=== PATIENT | female | born 1985 | race African-American/Black ===

== ENCOUNTER 2017-07-31 16:40 | Emergency (ER) | payer OTHER ==
[~2017-07-31] VITALS: Ht 188 cm; Wt 158.8 kg
[2017-07-31] MEDS ORDERED: ONDANSETRON HCL INJ 2 MG/ML VIAL IV STA (16:51)
[2017-07-31] MEDS ORDERED: MORPHINE SULFATE 2 MG/ML SYR IV STA (16:51)
[2017-07-31] MEDS ORDERED: SODIUM CHLORIDE 0.9% 1000ML 1,000 ML IV SCH (17:00)
[2017-07-31] MEDS ORDERED: CEFTRIAXONE SOD 1 GM VIAL IV ONE (18:15)
== END 2017-07-31 20:36 | disposition home or self-care (01) ==
LOC: FSED 16:40
DX: R10.33 Periumbilical pain (principal); R11.0 Nausea; Z32.01 Encounter for pregnancy test, result positive
CPT/HCPCS: 86900; 99283; J0696

== ENCOUNTER 2017-09-05 19:52 | Emergency (ER) | payer OTHER ==
[~2017-09-05] VITALS: Ht 188 cm; Wt 160.6 kg
--- OUTSIDE RECORDS SUMMARY | 2017-09-05 19:54 | XMS REPORT | Continuity of Care Document ---
Author Author [facility] Organization [facility] Address [address] [place] [address] Phone Unavailable Care Team Providers Care Metal Weather Stripper Name Role Phone NO, PCP PCP Unavailable Insurance Providers Guarantor Annamarie Hansen Address [address] [facility] [address] [place] [address] Email NONE Payer Power Union Policy Number [id number] Subscriber's Name YosvanyAnnamarie Weiss Relationship 18 Self / Same As Patient Group Number [id number] Group Name UNEMPLOYED Effective Date 17 Advance Directives Directive Response Recorded Date/Time Does the patient have an advance directive? No 07/31/17 5:57pm If yes, is advance directive on file with [facility]? No 07/31/17 5:57pm If not on file with [facility] will patient provide a copy? No 07/31/17 5:57pm Do you have a Directive to Physician? No 07/31/17 5:57pm Do you have a Medical Power of Performance Improvement Director? No 07/31/17 5:57pm Do you have an out of hospital Do Not Resuscitate Order? No 07/31/17 5:57pm Do you have any special needs we should be aware of? No 07/31/17 5:57pm Do you have a support person here with you today? Yes 07/31/17 5:57pm Did patient receive Notice of Privacy Practices? Yes 07/31/17 5:57pm Did patient receive patient rights and responsibilities? Yes 07/31/17 5:57pm Problems No problem information available. Medications No medication information available. Social History Smoking Status Start Date Stop Date Never Smoker Hospital Discharge Instructions No hospital discharge instruction information available. Plan of Care Discharge Date 07/31/17 8:36pm Disposition HOME, SELF-CARE Condition at Discharge Improved Instructions/Education Provided Forms Provided Work/School Excuse Prescriptions See Medication Section Functional Status No functional status information available. Allergies, Adverse Reactions, Alerts No known allergies. Immunizations No immunization information available. Vital Signs Acute Vital Signs Vital Response Date/Time Height 6 ft 2 in 07/31/2017 4:54pm Weight 350 lb 07/31/2017 4:54pm Body Mass Index 44.9 kg/m^2 07/31/2017 4:54pm Results No relevant diagnostic test, laboratory data and/or discharge summary information available. Procedures No procedure information available. Encounters Encounter Location Arrival/Admit Date Discharge/Depart Date Attending Provider Departed Emergency Room [facility] 07/31/17 4:40pm 8:36pm ELPIDIO LANDEROS
--- OUTSIDE RECORDS SUMMARY | 2017-09-05 19:54 | XMS REPORT ---
Author [facility] Address Unknown Phone Unavailable Care Team Providers Care Electronic Engineering Technician Name Role Phone Unavailable Unavailable Problems This patient has no known problems. Allergies, Adverse Reactions, Alerts This patient has no known allergies or adverse reactions. Medications This patient has no known medications. Encounters Start Date/Time End Date/Time Encounter Type Admission Type Attending [facility] Care Department Encounter ID 2017-08-02 09:58:24 2017-08-02 09:58:24 Outpatient [facility] [id number] 2017-07-22 00:00:00 2017-07-22 00:00:00 Outpatient [facility] [id number] 2017-06-29 00:00:00 2017-06-29 00:00:00 Outpatient [facility] [id number] 2017-06-29 00:00:00 2017-06-29 00:00:00 Outpatient [facility] [id number] 2017-06-14 00:00:00 2017-06-14 00:00:00 Outpatient [facility] [id number] 2017-06-07 00:00:00 2017-06-07 00:00:00 Outpatient [facility] [id number] 2017-05-31 13:20:10 2017-05-31 13:20:10 Outpatient [facility] [id number]
[2017-09-05 21:01] VITALS: BP 126/84
== END 2017-09-05 21:00 | disposition home or self-care (01) ==
LOC: FSED 19:52
DX: S63.636A Sprain of interphalangeal joint of right little finger, initial encounter (principal); W50.0XXA Accidental hit or strike by another person, initial encounter; Y92.009 Unspecified place in unspecified non-institutional (private) residence as the place of occurrence of the external cause
CPT/HCPCS: 99283